=== PATIENT | female | born 1980 | race African-American/Black ===

== ENCOUNTER → 2017-06-28 | Outpatient (CLI) | payer OTHER ==
[2015-12-20 09:22] VITALS: BP 127/83
--- NOTE | 2017-06-28 15:44 | RAD ---
DATE: 06/28/2017 EXAM: DIGITAL DIAGNOSTIC BILATERAL, BREAST LEFT HISTORY: Lump left breast COMPARISON: None This study was interpreted with the benefit of Computerized Aided Detection (CAD). FINDINGS: Breast Density: DENSE The breast Parenchyma is dense, which could reduce the sensitivity of mammography. Breast parenchyma level density D.. The area of concern in the left breast was marked. No dominant mass or suspect group of calcifications is seen in either breast. The breasts are quite dense which limits mammography. Ultrasound was performed targeted to where the patient reports a lump. The lump is palpable. In addition to images submitted by the technologist real-time examination was performed by me. Corresponding to the palpable lump at approximately the 2:00 position of the left breast is a mass measuring approximately 1.8 cm in greatest dimension. Much of the mass is probably cystic but there does appear to be a thick walled rim. Additionally there is some debris and/or solid mural portion associated with the mass. The mass was noted to be quite tender. Surrounding the mass was considerable vascularity. There was no significant shadowing seen associated with the mass. I indication to the patient that the mass was indeterminate in nature. I suggested ultrasound-guided biopsy. IMPRESSION: Indeterminate mass, (perhaps inflammatory) in the left breast. Ultrasound-guided biopsy recommended BI-RADS CATEGORY: 4 SUSPICIOUS ABNORMALITY-BIOPSY SHOULD BE CONSIDERED RECOMMENDED FOLLOW-UP: BIO BIOPSY RECOMMENDED PQRS compliance statement: Patient information was entered into a reminder system with a target due date soon for the next mammogram. Mammography is a sensitive method for finding small breast cancers, but it does not detect them all and is not a substitute for careful clinical examination. A negative mammogram does not negate a clinically suspicious finding and should not result in delay in biopsying a clinically suspicious abnormality. "Our facility is accredited by the [employer] Mammography [employer]."
--- NOTE | 2017-06-28 16:08 | RAD ---
Indication pain. AP oblique and odontoid and lateral views of the cervical spine were obtained. C1 through the upper thoracic spine is seen. There is some slight bony foraminal encroachment on the right at C5-6. No significant foraminal encroachment is seen on the left. There osteophytes seen anteriorly at C56 and there is very slight narrowing of the disc at C5-6. An acute finding is not seen. The prevertebral soft tissues appear normal. IMPRESSION: Mild degenerative changes centered at C5-6
== END | disposition home or self-care (01) ==
LOC: US 14:33
PROVIDERS: ATTEND Registered Nurse
DX: N63.20 Unspecified lump in the left breast, unspecified quadrant (principal); M47.892 Other spondylosis, cervical region; M62.838 Other muscle spasm; N64.4 Mastodynia
CPT/HCPCS: 72050; 76641; G0204; 77066

== ENCOUNTER → 2017-07-08 | Outpatient (CLI) | payer OTHER ==
[2015-12-20 09:22] VITALS: BP 127/83
[~2017-07-08] MED LIST: METO25TA4 PO
--- NOTE | 2017-07-08 15:38 | RAD ---
Indication left breast mass. Note is made of recent imaging of the left breast including ultrasound 06/28/2017. Known mass at the 2:00 position of the left breast is reproduced. Image guided aspiration/biopsy was discussed with the patient. The risks of infection and bleeding were outlined. Small possibility of pneumothorax was also discussed. The skin was prepped and draped in the routine fashion. Local anesthesia was accomplished with 1% lidocaine. Initially an 18-gauge needle was introduced into the mass and an attempted aspiration was made. Following this approximately 1 cc of thick, brownish, possibly purulent material was aspirated. The "mass" completely collapsed and there was no residual mass. Core biopsy was not performed. The retrieved material was sent to pathology for Gram stain, culture and sensitivity and cytology. The patient tolerated the procedure unremarkably. IMPRESSION: Aspiration as outlined above. No definite soft tissue mass seen Assuming benign pathology follow-up targeted ultrasound is suggested in 4-6 months
== END | disposition home or self-care (01) ==
LOC: US 13:22
PROVIDERS: ATTEND Registered Nurse
DX: N63.20 Unspecified lump in the left breast, unspecified quadrant (principal)
CPT/HCPCS: 19000; 76942; 87071; 87075; 87205